=== PATIENT | female | born 1975 | race Caucasian/White ===

== ENCOUNTER 2016-07-19 08:12 | Inpatient (IN) | payer OTHER ==
--- NOTE | ~2016-07-19 | CO ---
Unit #: [id number] #: [id number] Patient: BALBIR PENG [id number] [address] [address] [id number] MR#: [id number] NAME: BALBIR PENG. ROOM: 320 Age: 40 Sex: F Admission Date: 07/19/2016 : 1975 Attending Physician: Sean Matute M.D. Primary Care Physician: Cesar Hemphill M.D. Consultation Date: 07/19/2016 CONSULTATION REPORT REFERRING PHYSICIAN Dr. Matute REASON FOR CONSULTATION GI bleeding. HISTORY OF PRESENT ILLNESS Ms. Peng is a 40-year-old lady. She presented with vomiting blood this morning. She has a history of heavy alcohol intake. Since March, when she was admitted to the hospital, she has quit drinking altogether. She was diagnosed with cirrhosis at the time. She states she also has been having black stool and generalized abdominal pain. PAST MEDICAL HISTORY Severe alcoholic hepatitis and cirrhosis. ALLERGIES Tylenol. SOCIAL HISTORY Smoker. Denies alcohol now but has a history of heavy alcohol in the past. FAMILY HISTORY Noncontributory. REVIEW OF SYSTEMS Complete ten point review of systems was done which is unremarkable other than mentioned above. PHYSICAL EXAMINATION VITAL SIGN: Stable. Temperature 99, pulse 94, respirations 16, blood pressure of 106/69. HEENT: Pupils equal and reactive. Sclerae icteric. Oral mucosa moist. NECK: No JVD, no lymphadenopathy. CHEST: Clear to auscultation bilaterally. CARDIOVASCULAR SYSTEM: Regular rate and rhythm. No murmurs. ABDOMEN: Mildly distended. No shifting dullness, no organomegaly. Mild generalized tenderness. EXTREMITIES: Without clubbing, cyanosis or edema. NEUROLOGICAL: Intact. SKIN: Warm and dry. DIAGNOSTIC STUDIES Unit #: [id number] #: [id number] Patient: BALBIR PENG LABORATORY: Chemistry showed normal BUN and creatinine, sodium 130, bilirubin of 4.3. Of note, her bilirubin in January was 16 and March this year was 9.4. AST 149, ALT 34, alkaline phos. of 110. Ammonia level of 36. CBC with a hemoglobin of 10.4, white count of 0.9 and platelet count of 50,000. Coags with PT of 22, INR of 2. ASSESSMENT AND PLAN 1. Patient with severe pancytopenia, appears secondary to hypersplenism. 2. Alcoholic hepatitis and cirrhosis. 3. Coagulopathy secondary to liver failure. 4. Generalized abdominal pain. PLAN 1. PPI therapy, start octreotide infusion. 2. EGD once the platelet count comes up above 25. 3. Broad spectrum antibiotics. 4. Symptomatic treatment otherwise. 5. DT precautions. Thank you, Dr. Matute, for this interesting consult. Will follow along. Dictated by... Umer Bower M.D. SANDI/jean pierre TD: 07/20/2016 06:38 JOB #: [id number] CONSULTATION REPORT Page 1 of 1 X Umer Bower MD X CONSULTATION REPORT
--- NOTE | ~2016-07-19 | DS ---
Unit #: [id number] #: [id number] Patient: BALBIR REYES [id number] [address] [address] [id number] MR#: [id number] NAME: BALBIR REYES. ROOM: 320 Age: 40 Sex: F Admission Date: 07/19/2016 : 1975 Discharge Date: 07/27/2016 Attending Physician: Sean Matute M.D. Primary Care Physician: Cesar Hemphill M.D. DISCHARGE SUMMARY DISCHARGE DIAGNOSES 1. Bacteremia. 2. Status post gastrointestinal bleed. 3. Pancytopenia, status post hematology evaluation. 4. History of alcoholic cirrhosis. DISCHARGE MEDICATIONS 1. Ceftriaxone 1 gram IV daily for 12 days. 2. Os-Pavel with vitamin D one tablet b.i.d. 3. Protonix 40 mg daily. 4. Bentyl 10 mg t.i.d. p.r.n. for abdominal cramps. 5. Phenergan 25 mg p.o. q.6 h. p.r.n. nausea. 6. Lactulose 30 mL p.o. t.i.d. 7. Magnesium oxide 400 mg daily. 8. Shmz-wdk-mwanomg Imodium for loose stools. 9. Lasix 20 mg daily. 10. Multivitamins daily. 11. Aldactone 50 mg daily. 12. Klor-Con 20 mEq daily. CONSULT[address] 1. Dr. Arreola, nephrology. 2. Dr. Bower, gastroenterology. 3. Dr. Rylie Mckeon, intensive care. 4. Dr. Chantal Aguilera, hematology. 5. Dr. Orellana, infectious disease. DIAGNOSTIC STUDIES 1. Abdominal ultrasound showed cirrhotic morphology of the liver; splenomegaly with small volume ascites; distended gallbladder, no gallstones. 2. Blood culture Streptococcus agalactiae. HISTORY OF PRESENT ILLNESS Please refer to History and Physical for initial presentation of this female. HOSPITAL COURSE Bacteremia, status post IV Rocephin. Status post ID evaluation. Continue IV Rocephin for 12 more days. Home Health with outpatient IV antibiotics arranged. Pancytopenia, status post evaluation per Hematology. Currently stable for discharge. Outpatient followup with Hematology next week. Unit #: [id number] #: [id number] Patient: BALBIR REYES History of alcoholic cirrhosis. Continue current medications. Discharge date hemoglobin 9.2 and hematocrit 26.9. DISCHARGE MEDICATIONS As above. DISCHARGE DISPOSITION 1. Follow up with Primary Care Physician 2-3 days. 2. Outpatient followup with Hematology. 3. Outpatient followup with Gastroenterology. Dictated by... Carlos Donahue/catie TD: 07/27/2016 20:41 JOB #: [id number] DISCHARGE SUMMARY Page 1 of 1 X Sean Matute MD X DISCHARGE SUMMARY
--- NOTE | ~2016-07-19 | HP ---
Unit #: [id number] #: [id number] Patient: BALBIR PENG [id number] [address] [address] [id number] MR#: [id number] NAME: BALBIR PENG. ROOM: 320 Age: 40 Sex: F Admission Date: 07/19/2016 : 1975 Attending Physician: Sean Matute M.D. Primary Care Physician: Cesar Hemphill M.D. HISTORY AND PHYSICAL ADMISSION DIAGNOSES 1. Gastrointestinal bleed. 2. Worsening pancytopenia. 3. History of alcoholism. 4. History of alcoholic liver cirrhosis. HISTORY OF PRESENT ILLNESS Ms. Peng is a 40-year-old female with a past medical history significant for alcoholic hepatitis and cirrhosis, along with history of GI bleeds and pancytopenia, who comes to the emergency room with the complaints of abdominal pain, generalized body aches, and hematemesis with significant amount of blood. Initial evaluation in the emergency room revealed a relatively stable hemoglobin and hematocrit at 10.4 and 30.3; however, her white count was 0.9, and her platelets were 15,000. She received a platelet transfusion in the ER and was admitted. She is currently status post evaluation per GI, Dr. Bower, who started her on some octreotide drip. She was initially was started on an IV PPI in the ER which has continued. She also has been seen by Hematology, Dr. Aguilera, who wrote for some Granix. Currently, patient denies any other symptoms, denies any chest pain, shortness of air, dyspnea, fever, chills, nausea, vomiting, or diarrhea currently. She denies any cough or syncopal episode. So, a 12-point review of systems on this patient basically is negative except as above. PAST MEDICAL HISTORY Alcoholic hepatitis with cirrhosis and pancytopenia. PAST SURGICAL HISTORY Tubal ligation. HOME MEDICATIONS 1. Klor-Con. 2. Magnesium oxide. 3. Aldactone. 4. Lactulose. 5. Lasix. 6. Multivitamins. ALLERGIES Codeine and Tylenol. SOCIAL HISTORY She is an active smoker. She tells me that she has not drank any alcohol since March. She denies any illicit drug use. Unit #: [id number] #: [id number] Patient: BALBIR PENG FAMILY HISTORY Unremarkable. PHYSICAL EXAMINATION GENERAL: Patient is an ill-appearing 40-year-old female with some generalized icteric skin, otherwise, in no acute distress. VITAL SIGNS: Blood pressure 126/76, heart rate 92, respirations 21, and temperature 99.9 currently with T-max of 100.2. HEENT: Head is atraumatic. Pupils equal, round, and reactive to light and accommodation. Extraocular muscles intact. Oropharynx clear. NECK: Supple. No mass, no JVD, and no bruits. CHEST: Diminished bilaterally. CARDIOVASCULAR: S1 and S2. No murmurs. ABDOMEN: Soft, distended. Bowel sounds are diminished. LOWER EXTREMITIES: Without any cyanosis, clubbing, or edema. NEUROLOGIC: Grossly intact without any focal deficits. DIAGNOSTIC STUDIES LABORATORY: CBC as above. Coagulation panel: PT 22.1, INR 2, and PTT 37. Alkaline phosphatase 110, AST 147, and total bilirubin 4.3. Magnesium 0.8. Hematology as above in History of Present Illness. Urinalysis shows 1+ leukocyte esterase and positive nitrites. IMAGING: Right upper quadrant ultrasound shows distended gallbladder, no gallstones, and small volume ascites. ASSESSMENT AND PLAN 1. Questionable gastrointestinal bleed. Continue IV proton pump inhibitor. Continue octreotide drip. Status post evaluation per Gastroenterology. Scheduled for EGD in the morning. 2. Severe pancytopenia, status post platelet transfusion, status post Granix per Hematology. Monitor CBC closely. May need another platelet transfusion. 3. History of alcoholic hepatitis with cirrhosis. 4. Low-grade fever with urinary tract infection. Started on Rocephin which will be continued. Follow up on the urine culture. 5. Gastrointestinal and deep venous thrombosis prophylaxis with sequential compression devices and proton pump inhibitor drip as above. 1. Dictated by Carlos Donahue/erin TD: 07/19/2016 21:59 JOB #: [id number] Unit #: [id number] #: [id number] Patient: BALBIR PENG HISTORY AND PHYSICAL Page 1 of 1 X Giovani,Sean LEYVA X HISTORY AND PHYSICAL
--- NOTE | ~2016-07-19 | US5 ---
[facility] A Service of [facility] & [facility] RADIOLOGY TEXT RESULTS PATIENT: BALBIR REYES LOCATION: [facility] 49861-43 : [birth year] UNIT #: [id number] AGE: [address]: Sean Matute MD SEX: F ORDER DR: [id number] [facility] [address]. [place], [place] [address] [id number] I MR#: [id number] Acc #: [id number] NAME: BALBIR REYES. : 1975 SEX: F STUDY DATE/TIME: 07/19/2016 16:26 UNIT: CEDOF ROOM: 48640 STUDY DESCRIPTION: US Abdominal Complete Attending Physician: Sean Matute M.D. Ordering Physician: Umer Bower M.D. Primary Care Physician: Cesar Hemphill M.D. MEDICAL IMAGING REPORT This report is preliminary unless electronic signature is present EXAM Abdominal ultrasound 07/19/2016 INDICATIONS Hematemesis for [address] abdomen dated 03/20/2016. FINDINGS Portions of the pancreatic head are normal. The majority the pancreas is obscured due to overlying bowel gas. There is coarsened echotexture throughout the hepatic parenchyma. This is consistent with the given history of cirrhosis. No hepatic mass. The intrahepatic and extrahepatic bile ducts are normal in caliber. The common duct is normal in size at the floyd hepatis measuring 4 mm. The gallbladder is distended measuring up to 5.5 cm. This is similar to the prior CT scan. No gallstones are identified. The right kidney measures 12 cm. The left kidney measures 11.2 cm. Renal cortical thickness and echogenicity is normal. No hydronephrosis. The spleen is enlarged measuring up to 19 cm in length. The abdominal aorta is obscured due to overlying bowel gas. Juxtahepatic IVC is within normal limits. A small volume ascites has decreased since the prior study. There is a small right pleural effusion. IMPRESSION 1. Cirrhotic morphology of the liver. 2. Splenomegaly and small volume of ascites. The volume of ascites has decreased since the prior study. 3. Distended gallbladder, however no gallstones. The overall appearance [facility]. [facility] A Service of [facility] & [facility] RADIOLOGY TEXT RESULTS PATIENT: BALBIR REYES LOCATION: [facility] [id number] : [birth year] UNIT #: [id number] AGE: [address]: Sean Matute MD SEX: F ORDER DR: of the gallbladder is unchanged from prior CT scan. Dictated by... Tyshawn Sommers M.D. THIS IS AN ELECTRONICALLY VERIFIED REPORT Tyshawn Sommers M.D. at 07/19/2016 6:27 PM CHEYENNE/thomas TD: 07/19/2016 17:54 JOB #: [id number] MEDICAL IMAGING REPORT Page 1 of 1 COPY
--- NOTE | ~2016-07-19 | CO ---
Unit #: [id number] #: [id number] Patient: BALBIR REYES [id number] [address] [place], [place] [address] [id number] I MR#: [id number] NAME: BALBIR REYES. ROOM: 320 Age: 40 Sex: F Admission Date: 07/19/2016 : 1975 Attending Physician: Sean Matute M.D. Primary Care Physician: Cesar Hemphill M.D. Consultation Date: 07/26/2016 CONSULTATION REPORT REASON FOR CONSULTATION Bacteremia. HISTORY OF PRESENT ILLNESS This is a 40-year-old female with a history of past alcohol abuse and cirrhosis. The patient reports that she was in her normal state of health until the prior to admission when she began with multiple joint and extremity pain. The patient then progressed to having some vomiting the day of admission as well as dark stools. The patient was admitted for further evaluation. While here, the patient was noted to have some pancytopenia. She was also febrile up to 103 degrees Fahrenheit. She is status post EGD by the GI service for her hematemesis. The patient now has initial blood cultures that are showing Group B Strep from the . ID was asked to evaluate. Patient was maintained on vancomycin and Rocephin and has since been transitioned to Zosyn yesterday. The patient, overall, reports that she is feeling better. She reports the pain in all of her extremities is improving. She has no more nausea, vomiting or diarrhea. The patient denies any ongoing fever at this time as well and she denies any chills or sweats. She has occasional headache at times. PAST MEDICAL HISTORY Includes severe alcoholic hepatitis and cirrhosis. ALLERGIES Tylenol which patient reports that she develops hives. MEDICATIONS The patient is currently on vancomycin. For other medications, please refer to patient's MAR. SOCIAL HISTORY The patient has past alcohol abuse but no recent use at this time. Positive tobacco. REVIEW OF SYSTEMS Negative except for as previously mentioned above. PHYSICAL EXAMINATION VITAL SIGNS: Temperature 98.2 with a T-max this admission of 103.1 on July 19, 2016. Pulse is 74, blood pressure is 122/71, respiratory rate 16. GENERAL: This is a no apparent distress female who is awake and alert, sitting in the bed comfortably. HEENT/NECK: Her pupils are equal. Her neck is supple. CARDIOVASCULAR: S1, S2. Regular rate and rhythm. Unit #: [id number] #: [id number] Patient: BALBIR REYES PULMONARY: Clear to auscultation. Diminished in the bases. ABDOMEN: Positive bowel sounds. Soft and nontender in all quadrants. EXTREMITIES: Trace edema. No erythema or cellulitis noted on either lower extremities or upper extremities. She has two peripheral IV sites in place. DIAGNOSTIC STUDIES LABORATORY: BUN 5, creatinine 0.4, sodium 135, potassium 4.0, chloride 107, CO2 22. Uric acid on admission was 2.3, bilirubin 3.5, AST 42, ALT 23, alkaline phos. 107. Ammonia level on admission was 36. Lactic acid 1.2. Procalcitonin 0.3. Last INR was 1.7. White blood cell count of 4.5. Hemoglobin 9.2, hematocrit 26.9, platelets 38. Urine drug screen on admission was negative. Urinary analysis was unremarkable. 07/19 blood cultures two of two - group B Strep 15 minutes apart. Urine cultures - less than 10,000 colonies of insignificant growth. IMAGING: Ultrasound of the abdomen - cirrhotic morphology of the liver. Splenomegaly with small volume of ascites. Distended gallbladder without gallstones, without change from prior CT scan. IMPRESSION This is a 40-year-old female with severe alcoholic cirrhosis, now admitted with hematemesis and dark tarry stools, suspected of gastrointestinal bleed. The patient is status post esophagogastroduodenoscopy. The patient also had some nonspecific joint pain and swelling; however, this has been improving since she has been admitted to the hospital. The patient's initial workup now shows bacteremia in her blood cultures, two of two with group B Strep 15 minutes apart. The patient does have severe pancytopenia which is being followed by the GI team as well as hematology. In regards to patient's group B Strep bacteremia, the patient does not have any obvious septic joint cellulitis infection. She is higher risk due to her alcoholic cirrhosis and she may have had some bacteria translocation secondary to her hematemesis. At this time, patient appears to be clinically improving since admission. Her temperature has subsided and all of her symptoms on admission have resolved. The patient continues to be pancytopenia, however. At this time, no objection to Zosyn. Will repeat blood cultures x2 30 minutes apart. Will check a 2D echocardiogram to evaluate for endocarditis and check a CBC in the a.m. This case will be discussed with Dr. Enoch Orellana today. Final recommendations pending patient's workup. Thank you for allowing us to participate in the care of this patient. Further recommendations to follow pending patient's clinical course. Unit #: [id number] #: [id number] Patient: REYESBALBIR Dictated by... Leanne Smith A.P.R.N. for Carlos Cardona/jean pierre TD: 07/26/2016 10:36 JOB #: [id number] CONSULTATION REPORT Page 1 of 1 X X CONSULTATION REPORT
--- NOTE | ~2016-07-19 | CO ---
Unit #: [id number] #: [id number] Patient: BALBIR REYES [id number] [address] [address] [id number] I MR#: [id number] NAME: BALBIR REYES. ROOM: 320 Age: 40 Sex: F Admission Date: 07/19/2016 : 1975 Attending Physician: Sean Matute M.D. Primary Care Physician: Cesar Hemphill M.D. Consultation Date: 07/19/2016 CONSULTATION REPORT REASON FOR CONSULT ICU management. HISTORY OF PRESENT ILLNESS This is a 40-year-old female with past medical history significant end-stage liver disease/cirrhosis secondary to alcohol abuse, pancytopenia, jaundice, presented to the emergency room with upper GI bleed/hematemesis. The patient stated that she takes ptae-zyy-wzbiltk medication for back pain but she is unable to remember the name. She stated that she woke up this morning and she felt that her upper extremities and lower extremities were locked up and she was unable to mobilize them. She was in severe pain in her abdomen but later on her extremities started loosening up but she has suddenly vomited some bright red material and she asked her son to call 911 and come to the hospital. Patient currently is hemodynamically stable. No fever, chills, or cough. No chest pain. She is complaining of lower abdominal discomfort with some muscle cramps. PAST MEDICAL HISTORY 1. Alcoholic cirrhosis. 2. Chronic anemia. PAST SURGICAL HISTORY 1. EGD. 2. Tubal ligation. HOME MEDICATIONS None. ALLERGIES 1. Codeine. 2. Tylenol. 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 She has a history of alcoholism but she quit. No history of smoking. FAMILY HISTORY Noncontributory. Unit #: [id number] #: [id number] Patient: BALBIR REYES REVIEW OF SYSTEMS Twelve point review of systems were obtained and were negative except for what was mentioned in the HPI. PHYSICAL EXAMINATION VITAL SIGNS: Blood pressure 116/63, O2 saturation 100%. GENERAL: The patient is ill-appearing and jaundiced. HEENT: Atraumatic, normocephalic. PERRLA. EOMI. NECK: Supple. No JVD. No lymphadenopathy. LUNGS: Clear to auscultation bilaterally. HEART: S1, S2. No murmur, gallops or rubs. ABDOMEN: Soft. I was unable to detect any ascites. EXTREMITIES: Trace edema. NEUROLOGIC: Awake, alert, oriented x3. No focal motor/sensory deficit. SKIN: Jaundiced. DIAGNOSTIC STUDIES LABORATORY: Creatinine 0.6, sodium 130. White blood cell count 0.9, hemoglobin 10.4, platelets 15. ASSESSMENT 1. Hematemesis. 2. Pancytopenia. 3. Chronic anemia. 4. Malnutrition. 5. Alcoholic cirrhosis. PLAN 1. Will continue patient on Protonix and octreotide drips. 2. Will stop all NSAIDs. 3. IV hydration. 4. Clear liquids for tonight and n.p.o. after midnight. 5. Rocephin for possible UTI. 6. SCDs. No Lovenox given GI bleeds. 7. Physical therapy. I would like to thank Dr. Matute for allowing me to be part of this patient's care. Critical time spent on this patient was minutes. Dictated by... Magda Mckeon M.D. EA/catie TD: 07/19/2016 20:35 JOB #: [id number] Unit #: [id number] #: [id number] Patient: BALBIR REYES CONSULTATION REPORT Page 1 of 1 X MAGDA CLAY MD CONSULTATION REPORT
--- NOTE | ~2016-07-19 | CO ---
Unit #: [id number] #: [id number] Patient: BALBIR REYES [id number] [address] [address] [id number] I MR#: [id number] NAME: BALBIR REYES. ROOM: 320 Age: 40 Sex: F Admission Date: 07/19/2016 : 1975 Attending Physician: Sean Matute M.D. Primary Care Physician: Cesar Hemphill M.D. CONSULTATION REPORT REASON FOR CONSULTATION Hyponatremia. HISTORY OF PRESENT ILLNESS The patient is a 40-year-old female with significant past medical history of alcohol problem, history of cirrhosis, and hepatitis, but mainly admitted because of not feeling well, some tingling feeling and weakness of the lower extremities, and generalized body aches. The patient's sodium level that was 130 at the time of admission dropped to 126 in last 2 days; although, the patient was on normal saline at 150 mL an hour and also receiving thiamine and folic acid. The patient denies any other symptoms. No significant swelling of the lower extremities. She used to have some abdominal distention that has improved in last few months. As per her, the last alcohol drink was more than 3 months back and she is trying her best to be compliant to the alcohol intake. PAST MEDICAL HISTORY Significant for alcoholic hepatitis, cirrhosis, and pancytopenia. PAST SURGICAL HISTORY Tubal ligation. HOME MEDICATIONS Did include Aldactone, Lasix, but that was stopped in the hospital, but the patient was started on IV fluid and also on lactulose. She is also on magnesium oxide. FAMILY HISTORY Unremarkable. SOCIAL HISTORY She is a smoker and history of alcohol intake. PHYSICAL EXAMINATION GENERAL: The patient is a middle-aged female, not in any acute distress. VITAL SIGNS: Last blood pressure is 140/80, pulse is 65, temperature is 98, respiratory rate is 18, oxygen saturation is around 99%. HEAD AND NECK: Pupils are reactive to light. Extraocular movements intact. NECK: Supple. No JVD. No palpable lymph node in the neck. No carotid bruit. CHEST: The patient has bilateral air entry. No rhonchi. No crackles. No bronchial breathing. HEART: Regular rate and rhythm. No murmur. No gallop. Unit #: [id number] #: [id number] Patient: BALBIR REYES ABDOMEN: Soft. Bowel sounds positive. No guarding. No rigidity. EXTREMITIES: No clubbing, cyanosis, or edema. NEUROLOGIC: Grossly nonfocal. DIAGNOSTIC STUDIES LABORATORY RESULTS: Labs showed sodium level is 126. Renal functions are otherwise unremarkable. IMAGING STUDIES: Ultrasound of the right upper quadrant showed some ascites and hepatitis. ASSESSMENT 1. Hyponatremia. 2. Cirrhosis of the liver. 3. Pancytopenia. 4. Hypocalcemia. PLAN 1. Stop the IV fluids at this time, so that sodium level can be improved. 2. Start some loop diuretics to improve the patient's hyponatremia. 3. Fluid restriction will be started. 4. Follow up with repeat labs tomorrow morning and follow up with the urine studies. Thank you for letting me evaluate in taking care of this patient. Dictated by... Carlos Estrada/binh TD: 07/21/2016 22:33 JOB #: [id number] CONSULTATION REPORT Page 1 of 1 X Gold Arreola MD X CONSULTATION REPORT
--- NOTE | ~2016-07-19 | OR ---
Unit #: [id number] #: [id number] Patient: BALBIR REYES [id number] [address] [address] [id number] MR#: [id number] NAME: BALBIR REYES ROOM: [facility] Date of Procedure: 07/24/2016 Admission Date: 07/19/2016 Surgeon: Umer Bower M.D. : 1975 Attending Physician: Sean Matute M.D. Primary Care Physician: Cesar Hemphill M.D. PROCEDURE OPERATIVE NOTE PROCEDURE PERFORMED EGD with biopsy. INDICATION Anemia of acute blood loss, GI bleeding. MEDICATION Monitored anesthesia. POSTOP FINDINGS 1. No varices were seen. 2. Diffuse gastropathy, possibly related to liver injury. Biopsies taken. 3. Retained food in the stomach, suggest gastroparesis. PLAN Gastroparesis diet. Watch H and H. DESCRIPTION OF PROCEDURE The patient was explained the procedure, risks, and benefits along with risks and benefits of anesthesia. She was brought to the endoscopy room. Propofol anesthesia was given. Bite block was placed. The scope was passed down the mouth into the esophagus, stomach, duodenum, and distal duodenum. Findings as described. Biopsies taken. Gently, the scope was pulled out. She tolerated it well. Dictated by... Carlos Espinal/jean pierre TD: 08/10/2016 11:43 JOB #: [id number] Unit #: [id number] #: [id number] Patient: BALBIR REYES PROCEDURE OPERATIVE NOTE Page 1 of 1 X Umer Bower MD X PROCEDURE OPERATIVE NOTE
--- NOTE | ~2016-07-19 | CO ---
Unit #: [id number] #: [id number] Patient: BALBIR REYES [id number] [address] [place], [place] [address] [id number] MR#: [id number] NAME: BALBIR REYES. ROOM: [address]338 Age: 40 Sex: F Admission Date: 07/19/2016 : 1975 Attending Physician: Sean Matute M.D. Primary Care Physician: Cesar Hemphill M.D. CONSULTATION REPORT CHIEF COMPLAINT Cirrhosis of the liver secondary to alcohol abuse, pancytopenia, jaundice, musculoskeletal pain, upper GI bleed. HISTORY OF PRESENT ILLNESS This is a 40-year-old female with significant history of alcohol abuse. She has cirrhosis of the liver. She was hospitalized many times. In the past her bilirubin has been elevated to 16.1. She has quit drinking. She came with upper GI bleed, significant abdominal pain, musculoskeletal pain. She is taking Lasix and lactulose and avoiding hepatic encephalopathy. REVIEW OF SYSTEMS CONSTITUTIONAL: No fever, no chills, no sweats, no weight loss. EYES: No visual symptoms. EARS, NOSE AND THROAT: There is no runny nose or sore throat or difficulty hearing. CARDIOVASCULAR: No chest pain. No shortness of breath. No palpitations. No orthopnea. No PND. RESPIRATORY: No cough. No wheezing. No hemoptysis. GASTROINTESTINAL: No nausea, vomiting, diarrhea, constipation, hematochezia or melena. GENITOURINARY: As mentioned above. MUSCULOSKELETAL: As mentioned above. NEUROLOGIC: No headache. No numbness or tingling. No weakness. No seizure. PSYCHIATRIC: No anxiety, depression or mood disturbance. ENDOCRINE: No excessive urination or thirst. DERMATOLOGIC: No rash or change in the skin. ALLERGIC/IMMUNOLOGIC: No symptoms. HEMATOLOGIC/LYMPHATIC: Denies any symptoms. PAST MEDICAL HISTORY Cirrhosis of the liver secondary to alcohol abuse, pancytopenia. ALLERGIES Tylenol. SOCIAL HISTORY Used to smoke 1 pack per day for 20 years. Trying to cut down. Used to drink heavily now. She is not drinking. Working for [employer]. Unit #: [id number] #: [id number] Patient: BALBIR REYES SURGICAL HISTORY Tubal ligation. FAMILY HISTORY Grandmother has cirrhosis. Sister of grandmother had breast cancer. She of breast cancer. PHYSICAL EXAMINATION VITALS: Temperature 99, 100.2; pulse 94, respirations 16, O2 sats on 2 liters 99%, blood pressure 106/69. HEENT: Moist mucosa. Pupils equally reactive to light. Extraocular muscles intact. Sclerae anicteric. No obvious bleeding from nasal mucosa or oral mucosa. Scalp normal. Hearing normal. NECK: No JVD. No lymphadenopathy. LYMPHATIC/HEMATOLOGIC: There is no palpable adenopathy in the neck, axilla or inguinal area. CARDIOVASCULAR: S1, S2. Regular rate and rhythm. No S3 or S4. RESPIRATORY: Chest symmetrical, normal. Clear to auscultation bilaterally. No wheezes, no rales, no rhonchi. No dullness to percussion. ABDOMEN/GASTROINTESTINAL: Abdomen is soft, nontender, nondistended. No hepatosplenomegaly. EXTREMITIES: There is no clubbing, no cyanosis, no edema. No varicose veins. NEUROLOGICAL: Patient is alert, awake and oriented x3. Cranial nerves II-XII are intact. Sensory grossly intact. Motor is 4/5 in all four extremities. Gait is normal. Station is normal. Language is normal. Memory is normal. DTRs +2 in all four extremities. MUSCULOSKELETAL: No joint swelling. No bony tenderness. No muscle tenderness. SKIN: No petechiae, no rash, no ecchymosis. PSYCHIATRIC: No anxiety. No delusions or hallucinations. There is no agitation. Eye contact is normal. Affect is appropriate. There is no flight of ideas. DIAGNOSTIC STUDIES LABS: WBC 0.9, hemoglobin 10.4, platelets 15. Creatinine is 0.7 today, total bilirubin 4.7. IMAGING STUDIES: Pending. ASSESSMENT AND PLAN This is a 40-year-old with the following active issues: 1. Thrombocytopenia, leukopenia. This is due to sequestration of platelets and WBC in the liver. The patient has very advanced cirrhosis. This is due to alcohol abuse. Will try to maintain platelets above 10,000. If she bleeds, then we will change our plan. I will give her Granix. 2. Anemia. Will check iron studies. 3. GI. Patient has cirrhosis of the liver. She used to drink heavily. In the past her bilirubin was very high. It is improving. She has quit drinking. 4. Hepatic encephalopathy. She is taking lactulose. It is working. Her ammonia level is 36. Encourage her to drink plenty of fluid rich in electrolytes. Dictated by... Unit #: [id number] #: [id number] Patient: BALBIR REYES M.D. MIK/db TD: 07/19/2016 14:41 JOB #: [id number] CONSULTATION REPORT Page 1 of 1 X Chantal Aguilera MD CONSULTATION REPORT
[~2016-07-19 08:12] MED LIST: ACID CONTROL20 MG PO; ALDACTONE100 MG PO; B-1100 MG PO; B12 HEALTH1000 MCG/1; BACTRIM DS TABL1 TAB PO; COLACE PO; CYANOCOBALAM1000 MCG PO; FLAGYL PO; FOLIC ACID1 MG PO; GUAIFENSEN DM; HYDROXYCUT PO; KEFLEX500 M1 PO; KRISTALOSE20 G/PK1 PO; LASIX PO; LASIX20 MG PO; LEVAQUIN PO; LISINOPRIL PO; MAGNESIUM400 MG PO; MULTI VITAMIN1 EACH PO; N-ACETYL-L-CYS600 MG PO; NABUMETONE PO; NO MEDICATIONS; ORAZINC110 MG PO; PANTOPRAZOLE SO40 MG PO; PROTONIX20 MG; VICOPROFEN 200-1 TAB PO; VISTARIL PO; XIFAXAN550 MG PO; ZOFRAN; ZYRTEC-D T1 TAB.SR . PO
[2016-07-19 10:02] LABS: URINE SOURCE CLEAN CATCH
[2016-07-19 10:11] LABS: URINE APPEARANCE CLOUDY; URINE BLOOD NEG (NEG); URINE COLOR ORANGE; URINE GLUCOSE NEG (NEG); URINE KETONE NEG (NEG); URINE LEUKOCYTE ESTERASE 1+ (NEG); URINE NITRATE POS (NEG); URINE PH 5.5 (5-8); URINE PROTEIN 1+ (NEG); URINE SPECIFIC GRAVITY 1.048 (1.003-1.035)
[2016-07-19 10:12] LABS: BASOPHIL% 0.3 % (0-2.5); EOSINOPHIL% 0.1 % (0.0-7.0); HEMATOCRIT 30.3 % (35.0-45.0); HEMOGLOBIN 10.4 gm/dL (12.0-16.0); LYMPHOCYTE# 0.2 X10e3 (1.0-3.5); MEAN CELL VOLUME 100.5 FL (83-96); MEAN CORPUSCULAR HEMOGLOBIN 34.3 PG (28-34); MEAN CORPUSCULAR HGB CONC 34.2 g/dL (30-36); MEAN PLATELET VOLUME 8.6 FL (6.5-11.5); MONOCYTE# 0.1 X10e3 (0-1.0); MONOCYTE% 12.8 % (3.0-12.0); NEUTROPHIL# 0.6 X10e3 (1.5-7.1); NEUTROPHIL% 68.8 % (40-75); RED BLOOD COUNT 3.01 X10e (3.90-5.30); RED CELL DISTRIBUTION WIDTH 16.2 % (11.0-15.5); WHITE BLOOD COUNT 0.9 X10e3 (4.0-10.5)
[2016-07-19 10:13] LABS: CULTURE INDICATED? YES; URBCS1 AUWI 0-2 /[HPF] (0-2); URINE BACTERIA AUWI 1+ (NEGATIVE); URINE SQUAMOUS EPITHELIAL CELL MOD /[HPF]
[2016-07-19 10:24] LABS: URINE BILIRUBIN POS (NEG)
[2016-07-19 10:24] LABS: PROTHROMBIN TIME (PATIENT) 22.1 SECONDS (9.6-11.5)
[2016-07-19 10:25] LABS: URINE MUCUS PRESENT
[2016-07-19 10:35] LABS: ALBUMIN SERUM 2.6 g/dL (3.5-5.0); ALKALINE PHOSPHATASE 110 U/L (32-92); ALT (SGPT) 34 U/L (10-40); AST (SGOT) 149 U/L (10-42); BILIRUBIN,TOTAL 4.3 mg/dL (0.2-2.0); BLOOD UREA NITROGEN 12 mg/dL (9-23); CALCIUM SERUM 7.9 mg/dL (8.4-10.2); CARBON DIOXIDE 18 mmol/L (22-31); CHLORIDE 102 mmol/L (100-111); CREATININE SERUM 0.6 mg/dL (0.6-1.4); GLOM FILT RATE Estimated 114.8 mL/min (>60); GLUCOSE FASTING 102 mg/dL (70-110); POTASSIUM 3.6 mmol/L (3.5-5.1); PROTEIN TOTAL SERUM 6.4 g/dL (6.0-8.3); SODIUM 130 mmol/L (135-145)
[2016-07-19 10:37] LABS: ALCOHOL BLOOD <5 mg/dL (0); MAGNESIUM 0.8 mg/dL (1.6-3.0)
[2016-07-19 10:42] LABS: DIFF IND YES; PLATELET COUNT 15 X10e3 (140-420)
[2016-07-19 10:45] LABS: ANISOCYTOSIS SL; PLATELET ESTIMATE DECREASED (NORMAL)
[2016-07-19 10:51] LABS: AMPHETAMINE NEG (NEG); BARBITURATES NEG (NEG); BENZODIAZEPINES NEG (NEG); COCAINE NEG (NEG); MARIJUANA NEG (NEG); OPIATES NEG (NEG); TRICYCLIC ANTIDEPRESSANTS NEG (NEG); U METHADONE NEG (NEG)
[2016-07-19] MEDS ORDERED: KCL PO (11:28)
[2016-07-19] MEDS ORDERED: LASIX PO (11:29)
[2016-07-19] MEDS ORDERED: MAG-OX 400400 MG PO (11:29)
[2016-07-19] MEDS ORDERED: MULTIVITAMINS1 EAC3 PO (11:29)
[2016-07-19] MEDS ORDERED: LACTULOSE10 GM/15 M PO (11:29)
[2016-07-19] MEDS ORDERED: ALDACTONE100 MG PO (11:29)
[2016-07-19] MEDS ORDERED: PATIENT'S PHARMACY (11:32)
[2016-07-19 11:37] LABS: INFLUENZA A NEG (NEG); INFLUENZA B NEG (NEG)
[2016-07-20 05:53] LABS: HEMATOCRIT 26.9 % (35.0-45.0); HEMOGLOBIN 9.1 gm/dL (12.0-16.0); MEAN CELL VOLUME 101.1 FL (83-96); MEAN CORPUSCULAR HEMOGLOBIN 34.2 PG (28-34); MEAN CORPUSCULAR HGB CONC 33.9 g/dL (30-36); MEAN PLATELET VOLUME 8.8 FL (6.5-11.5); RED BLOOD COUNT 2.66 X10e (3.90-5.30); RED CELL DISTRIBUTION WIDTH 16.7 % (11.0-15.5)
[2016-07-20 06:14] LABS: WHITE BLOOD COUNT 3.4 X10e3 (4.0-10.5)
[2016-07-20 06:22] LABS: IRON SERUM 28 ug/dL (28-170); TOTAL IRON BINDING CAPACITY 153 ug/dL (269-535); TRANSFERRIN 110 mg/dL (192-382); TRANSFERRIN SATURATION 18 % (20-50)
[2016-07-20 06:36] LABS: FERRITIN 667 ng/mL (11-307)
[2016-07-20 06:47] LABS: ALBUMIN SERUM 2.3 g/dL (3.5-5.0); BILIRUBIN,TOTAL 3.5 mg/dL (0.2-2.0); CALCIUM SERUM 7.1 mg/dL (8.4-10.2); CREATININE SERUM 0.5 mg/dL (0.6-1.4); GLOM FILT RATE Estimated 121.9 mL/min (>60); MAGNESIUM 1.2 mg/dL (1.6-3.0); POTASSIUM 3.9 mmol/L (3.5-5.1); PROTEIN TOTAL SERUM 5.8 g/dL (6.0-8.3)
[2016-07-21 04:32] LABS: HEMATOCRIT 27.4 % (35.0-45.0); HEMOGLOBIN 9.2 gm/dL (12.0-16.0); MEAN CELL VOLUME 101.4 FL (83-96); MEAN CORPUSCULAR HEMOGLOBIN 34.1 PG (28-34); MEAN CORPUSCULAR HGB CONC 33.6 g/dL (30-36); MEAN PLATELET VOLUME 8.8 FL (6.5-11.5); RED BLOOD COUNT 2.7 X10e (3.90-5.30); RED CELL DISTRIBUTION WIDTH 17.2 % (11.0-15.5); WHITE BLOOD COUNT 4.1 X10e3 (4.0-10.5)
[2016-07-21 06:08] LABS: ALBUMIN SERUM 2.1 g/dL (3.5-5.0); BILIRUBIN,TOTAL 3.9 mg/dL (0.2-2.0); CREATININE SERUM 0.5 mg/dL (0.6-1.4); GLOM FILT RATE Estimated 121.9 mL/min (>60); POTASSIUM 3.8 mmol/L (3.5-5.1); PROTEIN TOTAL SERUM 5.6 g/dL (6.0-8.3)
[2016-07-21 06:16] LABS: URINE SOURCE CLEAN CATCH
[2016-07-21 06:30] LABS: URINE APPEARANCE CLEAR; URINE BLOOD NEG (NEG); URINE COLOR DK YELLOW; URINE GLUCOSE NEG (NEG); URINE KETONE NEG (NEG); URINE LEUKOCYTE ESTERASE TRACE (NEG); URINE NITRATE NEG (NEG); URINE PH 7.5 (5-8); URINE PROTEIN NEG (NEG); URINE SPECIFIC GRAVITY 1.016 (1.003-1.035)
[2016-07-21 06:32] LABS: U HYALINE CASTS AUWI 0-2 /[LPF]; URINE BACTERIA AUWI NEG (NEGATIVE); URINE SQUAMOUS EPITHELIAL CELL OCC /[HPF]; UWBCS1 AUWI 0-2 (0-5)
[2016-07-21 06:41] LABS: CULTURE INDICATED? NO
[2016-07-21 06:42] LABS: URINE BILIRUBIN POS (NEG)
[2016-07-21 07:00] LABS: SODIUM URINE RANDOM 139 mmol/L
[2016-07-21 07:30] LABS: OSMOLALITY,URINE 547 mOsmo/kg (250-900)
[2016-07-21 15:33] LABS: FREE T3 1.5 pg/mL (2.5-3.9)
[2016-07-21 15:34] LABS: FREE THYROXIN (T4) 0.57 ng/dL (0.58-1.64)
[2016-07-22 07:20] LABS: HEMATOCRIT 28.1 % (35.0-45.0); HEMOGLOBIN 9.5 gm/dL (12.0-16.0); MEAN CELL VOLUME 102.9 FL (83-96); MEAN CORPUSCULAR HEMOGLOBIN 34.9 PG (28-34); MEAN CORPUSCULAR HGB CONC 33.9 g/dL (30-36); MEAN PLATELET VOLUME 9.8 FL (6.5-11.5); RED BLOOD COUNT 2.73 X10e (3.90-5.30); RED CELL DISTRIBUTION WIDTH 17.1 % (11.0-15.5); WHITE BLOOD COUNT 3.1 X10e3 (4.0-10.5)
[2016-07-22 08:35] LABS: ALBUMIN SERUM 2.2 g/dL (3.5-5.0); BILIRUBIN,TOTAL 5.3 mg/dL (0.2-2.0); CALCIUM SERUM 7.3 mg/dL (8.4-10.2); CREATININE SERUM 0.4 mg/dL (0.6-1.4); GLOM FILT RATE Estimated 131.2 mL/min (>60); MAGNESIUM 1.3 mg/dL (1.6-3.0); PHOSPHOROUS 2.1 mg/dL (2.5-4.6); POTASSIUM 3.3 mmol/L (3.5-5.1); PROTEIN TOTAL SERUM 5.9 g/dL (6.0-8.3); URIC ACID 2.3 mg/dL (2.6-7.2)
[2016-07-23 07:55] LABS: HEMATOCRIT 26.6 % (35.0-45.0); MEAN CELL VOLUME 101.9 FL (83-96); MEAN CORPUSCULAR HEMOGLOBIN 34.5 PG (28-34); MEAN CORPUSCULAR HGB CONC 33.9 g/dL (30-36); MEAN PLATELET VOLUME 8.7 FL (6.5-11.5); RED BLOOD COUNT 2.62 X10e (3.90-5.30)
[2016-07-23 08:07] LABS: BUN/CREATININE RATIO 17.5; CALCIUM SERUM 7.5 mg/dL (8.4-10.2); CREATININE SERUM 0.4 mg/dL (0.6-1.4); GLOM FILT RATE Estimated 131.2 mL/min (>60); MAGNESIUM 1.4 mg/dL (1.6-3.0)
[2016-07-24 06:36] LABS: HEMATOCRIT 27.8 % (35.0-45.0); HEMOGLOBIN 9.5 gm/dL (12.0-16.0); MEAN CORPUSCULAR HEMOGLOBIN 34.9 PG (28-34); MEAN CORPUSCULAR HGB CONC 34.2 g/dL (30-36); RED BLOOD COUNT 2.73 X10e (3.90-5.30); RED CELL DISTRIBUTION WIDTH 17.8 % (11.0-15.5)
[2016-07-24 06:37] LABS: INR 1.7; PROTHROMBIN TIME (PATIENT) 18.1 SECONDS (9.6-11.5)
[2016-07-24 06:48] LABS: WHITE BLOOD COUNT 8.2 X10e3 (4.0-10.5)
[2016-07-24 07:27] LABS: ALBUMIN SERUM 2.3 g/dL (3.5-5.0); BILIRUBIN,TOTAL 4.9 mg/dL (0.2-2.0); CALCIUM SERUM 7.5 mg/dL (8.4-10.2); CREATININE SERUM 0.5 mg/dL (0.6-1.4); GLOM FILT RATE Estimated 121.9 mL/min (>60); POTASSIUM 4.1 mmol/L (3.5-5.1); PROTEIN TOTAL SERUM 6.1 g/dL (6.0-8.3)
[2016-07-25 05:58] LABS: HEMATOCRIT 26.3 % (35.0-45.0); HEMOGLOBIN 8.9 gm/dL (12.0-16.0); MEAN CORPUSCULAR HEMOGLOBIN 34.9 PG (28-34); MEAN CORPUSCULAR HGB CONC 33.9 g/dL (30-36); MEAN PLATELET VOLUME 9.9 FL (6.5-11.5); RED BLOOD COUNT 2.56 X10e (3.90-5.30); WHITE BLOOD COUNT 5.9 X10e3 (4.0-10.5)
[2016-07-25 06:25] LABS: ALBUMIN SERUM 2.3 g/dL (3.5-5.0); BILIRUBIN,TOTAL 3.5 mg/dL (0.2-2.0); CALCIUM SERUM 7.6 mg/dL (8.4-10.2); CREATININE SERUM 0.4 mg/dL (0.6-1.4); GLOM FILT RATE Estimated 131.2 mL/min (>60); PHOSPHOROUS 2.9 mg/dL (2.5-4.6)
[2016-07-26 06:34] LABS: HEMATOCRIT 26.9 % (35.0-45.0); HEMOGLOBIN 9.2 gm/dL (12.0-16.0); MEAN CELL VOLUME 102.4 FL (83-96); MEAN CORPUSCULAR HEMOGLOBIN 34.9 PG (28-34); MEAN CORPUSCULAR HGB CONC 34.1 g/dL (30-36); MEAN PLATELET VOLUME 9.9 FL (6.5-11.5); RED BLOOD COUNT 2.63 X10e (3.90-5.30); WHITE BLOOD COUNT 4.5 X10e3 (4.0-10.5)
[2016-07-26 07:18] LABS: BUN/CREATININE RATIO 12.5; CALCIUM SERUM 7.9 mg/dL (8.4-10.2); CREATININE SERUM 0.4 mg/dL (0.6-1.4); GLOM FILT RATE Estimated 131.2 mL/min (>60)
[2016-07-27 05:26] LABS: HEMATOCRIT 26.9 % (35.0-45.0); HEMOGLOBIN 9.2 gm/dL (12.0-16.0); MEAN CELL VOLUME 101.8 FL (83-96); MEAN CORPUSCULAR HEMOGLOBIN 34.8 PG (28-34); MEAN CORPUSCULAR HGB CONC 34.1 g/dL (30-36); MEAN PLATELET VOLUME 9.7 FL (6.5-11.5); RED BLOOD COUNT 2.65 X10e (3.90-5.30); RED CELL DISTRIBUTION WIDTH 16.9 % (11.0-15.5); WHITE BLOOD COUNT 2.8 X10e3 (4.0-10.5)
[2016-07-27 06:30] LABS: ALBUMIN SERUM 2.3 g/dL (3.5-5.0); BILIRUBIN,TOTAL 4.6 mg/dL (0.2-2.0); CREATININE SERUM 0.5 mg/dL (0.6-1.4); GLOM FILT RATE Estimated 121.9 mL/min (>60); PROTEIN TOTAL SERUM 6.2 g/dL (6.0-8.3)
[2016-07-27] MEDS ORDERED: PHENERGAN25 M1 PO (19:16)
[2016-07-27] MEDS ORDERED: ANTI-DIARRHEAL2 M1 PO (19:16)
[2016-07-27] MEDS ORDERED: BENTYL10 MG PO (19:17)
[2016-07-27] MEDS ORDERED: LASIX20 MG PO (19:18)
[2016-07-27] MEDS ORDERED: SPIRONOLACTONE50 MG PO (19:19)
[2016-07-27] MEDS ORDERED: PROTONIX PO (19:19)
[2016-07-27] MEDS ORDERED: CALCIUM 500 +1 EAC5 PO (19:20)
[2016-07-27] MEDS ORDERED: CEFTRIAXONE1 GM INJ (19:21)
== END 2016-07-28 00:30 | disposition home health service (06) | DRG 872 ==
LOC: CED 08:12 → C3A PCU 11:40 → CEDOF 11:40 → CED 11:57 → CEDOF 11:57 → C3A PCU 20:21
PROVIDERS: Emergency Medicine; Hospitalist; Internal Medicine; Internal Medicine Hematology; Internal Medicine Nephrology
PROC: 6A550Z2 Pheresis of Platelets, Single (ICD-10-PCS; 2016-07-19)
PROC: 0DB68ZX Excision of Stomach, Via Natural or Artificial Opening Endoscopic, Diagnostic (ICD-10-PCS; principal; 2016-07-24 08:15)
PROC: B24BYZZ Ultrasonography of Heart with Aorta using Other Contrast (ICD-10-PCS; 2016-07-27)
PROC: 05H533Z Insertion of Infusion Device into Right Subclavian Vein, Percutaneous Approach (ICD-10-PCS; 2016-07-27)
PROC: B546ZZA Ultrasonography of Right Subclavian Vein, Guidance (ICD-10-PCS; 2016-07-27)
DX: A40.9 Streptococcal sepsis, unspecified (principal); K92.0 Hematemesis; D61.818 Other pancytopenia; E87.2 Acidosis; E46 Unspecified protein-calorie malnutrition; E87.1 Hypo-osmolality and hyponatremia; D69.6 Thrombocytopenia, unspecified; N39.0 Urinary tract infection, site not specified; K70.30 Alcoholic cirrhosis of liver without ascites; Z98.51 Tubal ligation status; F10.21 Alcohol dependence, in remission; F17.210 Nicotine dependence, cigarettes, uncomplicated; E83.51 Hypocalcemia; D73.1 Hypersplenism; K70.10 Alcoholic hepatitis without ascites; K70.40 Alcoholic hepatic failure without coma; D64.89 Other specified anemias; D72.819 Decreased white blood cell count, unspecified; K29.40 Chronic atrophic gastritis without bleeding; E87.6 Hypokalemia; E83.42 Hypomagnesemia; K31.9 Disease of stomach and duodenum, unspecified; K31.84 Gastroparesis
CPT/HCPCS: 36415; 76700; 80048; 80053; 80202; 80307; 81003; 82140; 82306; 82308; 82330; 82607; 82652; 82728; 83036; 83540; 83550; 83605; 83735; 83935; 84100; 84132; 84300; 84439; 84481; 84550; 84703; 85025; 85027; 85610; 85730; 86850; 86900; 86901; 87040; 87077; 87086; 87186; 87804; 88305; 88312; 93306; 96361; 96365; 96366; 96375; 99285; C9113; G0480; J0696; J1447; J1940; J2250; J2270; J2354; J2405; J2543; J3370; J3411; J3430; J3475; J7042; P9035

== ENCOUNTER 2016-07-30 19:57 | Emergency (ER) | payer OTHER ==
[~2016-07-30 19:57] MED LIST changes: +ANTI-DIARRHEAL2 M1 PO; +BENTYL10 MG PO; +CALCIUM 500 +1 EAC5 PO; +CEFTRIAXONE1 GM INJ; +KCL PO; +LACTULOSE10 GM/15 M PO; +MAG-OX 400400 MG PO; +MULTIVITAMINS1 EAC3 PO; +PATIENT'S PHARMACY; +PHENERGAN25 M1 PO; +PROTONIX PO; +SPIRONOLACTONE50 MG PO
[2016-07-30 21:56] LABS: BASOPHIL% 0.7 % (0-2.5); EOSINOPHIL# 0.1 X10e3 (0-0.7); EOSINOPHIL% 2.3 % (0.0-7.0); HEMATOCRIT 26.8 % (35.0-45.0); LYMPHOCYTE% 37.8 % (17.0-45.0); MEAN CELL VOLUME 101.3 FL (83-96); MEAN CORPUSCULAR HEMOGLOBIN 34.2 PG (28-34); MEAN CORPUSCULAR HGB CONC 33.8 g/dL (30-36); MEAN PLATELET VOLUME 9.1 FL (6.5-11.5); MONOCYTE# 0.2 X10e3 (0-1.0); MONOCYTE% 8.5 % (3.0-12.0); NEUTROPHIL# 1.3 X10e3 (1.5-7.1); NEUTROPHIL% 50.7 % (40-75); RED BLOOD COUNT 2.64 X10e (3.90-5.30); RED CELL DISTRIBUTION WIDTH 17.3 % (11.0-15.5); WHITE BLOOD COUNT 2.6 X10e3 (4.0-10.5)
[2016-07-30 21:58] LABS: DIFF IND YES; PLATELET COUNT 44 X10e3 (140-420)
[2016-07-30 22:01] LABS: ANISOCYTOSIS MOD; INR 1.6; PARTIAL THROMBOPLASTIN TIME 36.6 SECONDS (23.5-31.3); PLATELET ESTIMATE DECREASED (NORMAL); PROTHROMBIN TIME (PATIENT) 17.4 SECONDS (9.6-11.5); SMUDGE CELLS 7 /100
[2016-07-30 22:04] LABS: ALBUMIN SERUM 2.6 g/dL (3.5-5.0); BILIRUBIN, DIRECT 1.5 mg/dL (0.0-0.2); BILIRUBIN,INDIRECT 2.4 mg/dL (0.0-0.9); BILIRUBIN,TOTAL 3.9 mg/dL (0.2-2.0); BUN/CREATININE RATIO 16.25; CALCIUM SERUM 8.2 mg/dL (8.4-10.2); CREATININE SERUM 0.8 mg/dL (0.6-1.4); MAGNESIUM 1.5 mg/dL (1.6-3.0); POTASSIUM 3.6 mmol/L (3.5-5.1)
== END 2016-07-30 22:45 | disposition home or self-care (01) ==
LOC: CED 19:57
PROVIDERS: Emergency Medicine
DX: D61.818 Other pancytopenia (principal); E83.41 Hypermagnesemia; K74.60 Unspecified cirrhosis of liver; M54.5 Low back pain; G47.00 Insomnia, unspecified; F17.200 Nicotine dependence, unspecified, uncomplicated; Z79.899 Other long term (current) drug therapy; Z88.5 Allergy status to narcotic agent; Z88.6 Allergy status to analgesic agent
CPT/HCPCS: 36415; 80048; 80076; 83735; 85025; 85610; 85730; 99283

== ENCOUNTER 2016-08-01 12:28 | Emergency (ER) | payer OTHER ==
[2016-08-01 12:39] LABS: HEMOGLOBIN 9.9 gm/dL (12.0-16.0); WHITE BLOOD COUNT 2.9 X10e3 (4.0-10.5)
[2016-08-01 12:40] LABS: HEMATOCRIT 28.6 % (35.0-45.0); MEAN CELL VOLUME 101.4 FL (83-96); MEAN CORPUSCULAR HEMOGLOBIN 35.3 PG (28-34); MEAN CORPUSCULAR HGB CONC 34.8 g/dL (30-36); RED BLOOD COUNT 2.82 X10e (3.90-5.30); RED CELL DISTRIBUTION WIDTH 16.4 % (11.0-15.5)
[2016-08-01 12:57] LABS: BUN/CREATININE RATIO 21.66; CALCIUM SERUM 8.4 mg/dL (8.4-10.2); CREATININE SERUM 0.6 mg/dL (0.6-1.4); GLOM FILT RATE Estimated 114.8 mL/min (>60); POTASSIUM 3.7 mmol/L (3.5-5.1)
== END 2016-08-01 17:32 | disposition home or self-care (01) ==
LOC: CED 12:28
DX: T82.594A Other mechanical complication of infusion catheter, initial encounter (principal); I10 Essential (primary) hypertension; F17.200 Nicotine dependence, unspecified, uncomplicated; Z88.5 Allergy status to narcotic agent; Z88.8 Allergy status to other drugs, medicaments and biological substances; Z79.899 Other long term (current) drug therapy
CPT/HCPCS: 80048; 85027; 85651; 86140; 99283